=== PATIENT | female | born 2005 | race Caucasian/White ===

== ENCOUNTER 2024-08-17 12:28 | Emergency (ER) | payer BC, SELFPAY ==
--- NOTE | 2024-08-17 12:38 | ED.GENADULT ---
HPI - General Adult General Date Seen: 08/17/24 Chief complaint: Extremity Pain/Injury, Upper Stated complaint: L pointer finger injury Time Seen by Provider: 08/17/24 12:31 History of Present Illness HPI narrative: 19 yo generally healthy female presenting to the ER today for evaluation of a left hand index finger injury that occurred last night. She was in a hotel last night. She was apparently in the hallway and was going the wrong way. The hallway door in the hotel was swinging closed she tried to put her left hand out to stop the door swelling shut. It was closing faster than she thought and she got her index finger pinched between the door and the door jam. She suffered an injury to her index finger. Thumb and other fingers are uninjured. Initially she did not recognize how much was hurting. Today it is swollen, feels a little bit numb, and she has difficulty moving it, especially flexing extending her PIP and the IP joints. No laceration or bleeding. She has noted that there is also some bruising on the volar aspect of the proximal phalanges. No other injuries. She is right-hand dominant. She does a lot with her hand and she is an avid rock climber. [facility] Social History Smoking Status: Never smoker Do you use any of these nicotine containing products: None How often do you have a drink containing alcohol: monthly or less AUDIT-C Alcohol total score: 1 Non-prescribed substance use: denies use service: No Exam Narrative: Exam Narrative: Constitutional: Appears well-developed and well-nourished. Active. Non-toxic appearing. Polite. Father attentively at her side HENT: Head: Atraumatic. No signs of injury. Nose: No nasal discharge. Mouth/Throat: Mucous membranes are moist. Pharynx is normal. Tonsils symmetric. Uvula midline. Airway patent. Eyes: Conjunctivae normal and EOM are normal. Pupils are equal, round, and reactive to light. Right eye exhibits no discharge. Left eye exhibits no discharge. No icterus. Neck: Normal range of motion. Neck supple. No adenopathy. No stridor. Cardiovascular: Normal rate and regular rhythm. No murmur heard. No murmurs, rubs, or gallops. Brisk capillary refill in her finger tip. Pulmonary/Chest: Effort normal. No stridor. No respiratory distress. Musculoskeletal: Normal a except for her left hand 2nd digit (index finger): Normal range of motion. No edema. No tenderness. No deformity. Left hand 2nd digit-metacarpal and MCP joint are nontender. Normal flexion and extension of the MCP. she does have swelling with subtle ecchymosis especially around the PIP joint. She is mildly tender over the PIP joint, distal of the proximal phalanges, middle phalanges. No definite deformity. No rotational deformity. The distal phalanges is nontender. Finger nail plate intact. She has subjective tingling in her finger tip but does have sensory function of the radial and ulnar digital nerves in her left hand 2nd digit. Neurological: Alert. Normal strength. No cranial nerve deficit or sensory deficit. Coordination normal. GCS eye subscore is 4. GCS verbal subscore is 5. GCS motor subscore is 6. Skin: Skin is warm. No rash noted. Const: Vital Signs, click to edit/add: Vital Signs - 24 hr 08/17/24 12:52 08/17/24 14:34 Temperature 99 F Pulse Rate [Right Radial] 67 55 L Respiratory Rate 14 Blood Pressure [Ri ght Upper Arm] 99/64 105/70 Pulse Oximetry 99 Oxygen Delivery Me thod Room Air Course Vital Signs Vital signs: Initial Vital Signs Temperature 99 F 08/17/24 12:52 Temperature Source Temporal Artery Scan 08/17/24 12:52 Pulse Rate 67 08/17/24 12:52 Pulse Rhythm Regular 08/17/24 12:52 Blood Pressure 99/64 08/17/24 12:52 Blood Pressure Mean 75 08/17/24 12:52 Pulse Oximetry 99 08/17/24 12:52 Oxygen Delivery Method Room Air 08/17/24 12:52 Vital Signs Temperature 99 F 08/17/24 12:52 Pulse Rate 67 08/17/24 12:52 Blood Pressure 99/64 08/17/24 12:52 Pulse Oximetry 99 08/17/24 12:52 Oxygen Delivery Method Room Air 08/17/24 12:52 Temperature 99 F 08/17/24 12:52 Pulse Rate 55 L 08/17/24 14:34 Respiratory Rate 14 08/17/24 14:34 Blood Pressure 105/70 08/17/24 14:34 Pulse Oximetry 99 08/17/24 12:52 Oxygen Delivery Method Room Air 08/17/24 12:52 Medical Decision Making MDM Narrative Medical decision making narrative: Pleasant 19-year-old gentle healthy female presenting to the ER today with a crush injury to her left index finger that occurred last night at a hotel. She does have swelling and ecchymosis of the finger. Limited range of motion of the PIP joint, due to swelling. No obvious deformity on clinical exam. X-rays are negative for any acute fracture or dislocation. At this point she is vascularly intact. She has some checked of paresthesias in the finger tip but no clear digital nerve injury at this point. Will treat supportively with rest, immobilization in a finger splint. Counseled to follow-up with primary care for re-evaluation the next 2-3 days. Ice as needed. Tylenol ibuprofen if needed for pain. Imaging Data XR finger: Attestation: I have reviewed the pertinent imaging results. My impression: no fx or dislocation Radiologist's impression: Impression: Mild 2nd digit soft tissue swelling without evidence of displaced fracture. Discharge Plan Discharge Clinical Impression: Finger sprain Patient Disposition: Home, Self-Care Condition: Stable Instructions: Finger Sprain (ED) Additional Instructions: As we discussed, x-rays look good. Nothing broken or dislocated. you can use Tylenol 1000 mg every 6 hours as needed or ibuprofen 600 mg every 6 hours as needed for pain. Use ice for 10-15 minutes every few hours to help reduce swelling and bruising. Wear the splint on your finger for the next 2-4 days until it is feeling better. If it is not substantially improved by or Monday, please recheck with your doctor come back to the ER for re-evaluation. Follow Up/Referrals: Provider,Not a Local [Primary Care Provider] - Stand Alone Forms: [employer] Info Instructions
[2024-08-17 12:52] VITALS: BP 99/64; PULSE 67; TEMP 37.2; O2SAT 99
--- NOTE | 2024-08-17 13:01 | CRLHL7_ITS ---
For Patients: As a result of the Cures Act, medical imaging exams and procedure reports are released immediately into your electronic medical record. You may view this report before your referring provider. If you have questions, please contact your health care provider. Indication: Left finger crush injury, PIP swelling Comparison: None available. Technique: AP, lateral, and oblique views left 2nd digit were obtained. Findings: There is no displaced fracture or dislocation. The joint spaces are grossly preserved. Mild fusiform soft tissue swelling of the 2nd digit. Impression: Mild 2nd digit soft tissue swelling without evidence of displaced fracture. Dictated by Myke Madrid MD @ 08/17/2024 2:13:35 PM (Electronically Signed)
[2024-08-17 14:34] VITALS: BP 105/70; PULSE 55; RESP 14
== END 2024-08-17 14:35 | disposition home or self-care (01) ==
PROVIDERS: Emergency Provider Emergency Medicine
DX: S63.631A Sprain of interphalangeal joint of left index finger, initial encounter (principal); W22.8XXA Striking against or struck by other objects, initial encounter
CPT/HCPCS: 29130; 73140; 99282; 99283